=== PATIENT | male | born 1960 | race Caucasian/White ===

== ENCOUNTER 2024-06-04 17:04 | Emergency (ER) | payer OTHER ==
[2024-06-04] MEDS: Acetaminophen/HYDROcodone 325-5 MG Tab PO ONE (19:35)
== END 2024-06-04 19:45 | disposition home or self-care (01) ==
LOC: JD.ED 17:04
DX: S89.92XA Unspecified injury of left lower leg, initial encounter (principal); Z88.8 Allergy status to other drugs, medicaments and biological substances; Z86.16 Personal history of COVID-19; X50.1XXA Overexertion from prolonged static or awkward postures, initial encounter
CPT/HCPCS: 73564; 99283; A9270; 99282